=== PATIENT | male | born 1985 | race Caucasian/White ===

== ENCOUNTER → 2020-05-16 14:20 | Outpatient (CLI) | payer OTHER, SELFPAY ==
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
--- NOTE | ~2020-05-16 | XR_ITS ---
EXAMINATION: XR shoulder LT min 2V DATE: 05/16/2020 14:54 INDICATION: Left shoulder pain TECHNIQUE: AP internally and externally rotated, AP oblique externally rotated and axillary views of the left shoulder were obtained. COMPARISON: None FINDINGS: Normal alignment. No fracture. Glenohumeral joint is normal. Acromioclavicular joint is normal. Soft tissues are unremarkable. IMPRESSION: Negative left shoulder radiographs. Reviewed, dictated and finalized at location A.
== END ==
PROVIDERS: PCP Nurse Practitioner Family; Visit Provider Nurse Practitioner Family
DX: R07.81 Pleurodynia (principal); M25.512 Pain in left shoulder; S22.31XA Fracture of one rib, right side, initial encounter for closed fracture
CPT/HCPCS: 71111; 73030

== ENCOUNTER → 2020-07-26 13:08 | Outpatient (CLI) | payer OTHER, SELFPAY ==
--- NOTE | ~2020-07-26 | US_ITS ---
US right upper quadrant DATE: 07/26/2020 13:45 INDICATION: Right upper quadrant abdominal pain TECHNIQUE: Real-time imaging of the liver, pancreas, gallbladder COMPARISON: None FINDINGS: There is an approximately 4 mm gallbladder polyp. No gallbladder wall thickening or pericho lecystic abnormal fluid collection. Negative sonographic Benton's sign. No hepatic or pancreatic space-occupying mass lesion. Normal hepatopedal portal venous flow direction . IMPRESSION: 4 mm gallbladder polyp Reviewed, dictated and finalized at Location A. Reviewed, dictated and finalized at location A. IMPRESSION: 4 mm gallbladder polyp
== END ==
PROVIDERS: PCP Nurse Practitioner Family; Visit Provider Nurse Practitioner Family
DX: R10.11 Right upper quadrant pain (principal); K82.4 Cholesterolosis of gallbladder
CPT/HCPCS: 76705

== ENCOUNTER 2020-10-02 00:30 | Outpatient (CLI) | payer OTHER, SELFPAY ==
[2020-10-02 18:50] LABS: SARS-CoV-2 RNA PCR Negative
== END 2020-10-02 00:31 | disposition home or self-care (01) ==
LOC: ANHCOVIDDT 00:30
PROVIDERS: PCP Nurse Practitioner Family; Visit Provider Surgery
DX: Z01.812 Encounter for preprocedural laboratory examination (principal); Z20.822 Contact with and (suspected) exposure to COVID-19
CPT/HCPCS: C9803; U0003

== ENCOUNTER 2020-10-02 07:54 | Outpatient (CLI) | payer OTHER, SELFPAY ==
--- NOTE | 2020-10-02 07:57 | ECG_ITS ---
Measurements Intervals [place] Rate: 73 P: 37 GA: 125 QRS: 59 QRSD: 98 T: 5 QT: 349 QTc: 385 Interpretive Statements SINUS RHYTHM WITH MARKED SINUS ARRHYTHMIA NONSPECIFIC T-WAVE ABNORMALITY- INFERIOR LEADS BASELINE ARTIFACT- I, II, III, AVR, AVL BORDERLINE ECG Electronically Signed On 10-02-2020 8:16:48 CUSTOMER FIELD REPRESENTATIVE by Florian Flores D.O.
[2020-10-02 09:01] LABS: Alanine Aminotransferase 51 U/L (4-50); Albumin Level 4.2 g/dL (3.5-5.1); Alkaline Phosphatase 52 U/L (38-126); Amylase 79 U/L (30-110); Aspartate Amino Transferase 83 U/L (17-59); Bilirubin,Total 0.4 mg/dL (0.2-1.3); Lipase 75 U/L (23-300)
== END 2020-10-02 07:55 | disposition home or self-care (01) ==
LOC: ANHSURGERY 07:57
PROVIDERS: PCP Nurse Practitioner Family; Visit Provider Surgery
DX: Z01.812 Encounter for preprocedural laboratory examination (principal); K82.4 Cholesterolosis of gallbladder
CPT/HCPCS: 36415; 80076; 82150; 83690; 86850; 86900; 86901; 93005

== ENCOUNTER 2020-10-05 00:29 | Day surgery (SDC) | payer OTHER, SELFPAY ==
[2020-09-26 14:22] VITALS: BMI 27.1
--- NOTE | 2020-10-04 13:13 | WPDANESEPPF ---
Anes - Initial Pre Proc Eval Procedure: Operation Date: 10/05/20 10:30 Proposed Procedures p Laparoscopic Cholecystectomy, Possible Open - Gin Loya MD Date/Time: 10/04/20 13:13 Surgeon: Gin oLya MD Pre Op Diagnosis: Gallbladder Polyps Patient Data Age: 35 Gender: M Height: 1.85 m Weight: 93.18 kg Allergies Allergy/AdvReac Type Severity Reaction Status Date / Time No Known Allergies Allergy Verified 09/26/20 14:14 Home Medications Medication Instructions Recorded Confirmed Type ascorbic acid (vitamin C) [Vitamin 25 mg PO DAILY 09/26/20 09/26/20 History C] cholecalciferol (vitamin D3) 25 mcg PO DAILY 09/26/20 09/26/20 History [Vitamin D3] jlbtjpuvnozg-exq-puam-FA-vit K 1 tablet PO DAILY 09/26/20 09/26/20 History [Adults Multivitamin] Patient hx anesthesia problems: none Family hx anesthesia problems: none PMFSH Past Medical History Medical History (Updated 08/15/20 @ 14:38 by Lolita Wolf) High cholesterol Surgical History Surgical History (Updated 10/04/20 @ 13:13 by Tim Lacy DO) History of tonsillectomy Family History Family History Sibling Patient's sister is in good health Patient's brother is in good health Mother Family history of malignant neoplasm of breast in first degree relative Family history of malignant neoplasm Father Heart disease Cerebrovascular accident Grandparent Carcinoma of colon Social History Social History Smoking packs per day: 1 Smoking cigarettes per day: 20.0 Years smoked: 20 Smoking pack-years: 20.00 Smoking status: Current every day smoker Tobacco type: cigarettes Smoking end date: 09/09/20 Additional smoking assessment comments: smoked for 20 years,1ppd.currently using nicotine patch Alcohol intake: current Drinks per week: 50 Alcohol use details: 10-12 beers a day, Living arrangements: alone 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 Questions were solicited and answers provided to the satisfaction of the patient/family/POA.
[2020-10-05] VITALS (7 sets, daily range): BP systolic 116–154; BP diastolic 66–93; PULSE 63–96; RESP 14–20; TEMP 36.4–36.7; O2SAT 92–100
[2020-10-05] MEDS: ACETAMINOPHEN 500 MG TABLET 1000 MG PO (08:57)
[2020-10-05] MEDS: LACTATED RINGERS 1,000 ML 30 ML IV CONT ×2 (09:13→10:55)
[2020-10-05] MEDS: KETOROLAC 15 MG/ML VIAL (*BKC) IV PUSH (09:14)
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
--- NOTE | 2020-10-05 09:45 | WPDHPUPDATE1 ---
History and Physical Update Update Date/Time: 10/05/20 09:45 History and Physical has been reviewed, including an updated exam of the patient. There are NO changes in the patient's condition. Risks, benefits, and alternatives have been discussed and questions answered. Patient agrees to proceed with procedure.
[2020-10-05] MEDS: ceFAZolin 2 GM/D5W 50 ML 2 GM/50 ML BAG IVPB (10:00)
[2020-10-05] MEDS: LIDO 1%/EPINEPHRINE 1:100,000 50 ML VIAL INFILTRATE (10:21)
--- NOTE | 2020-10-05 10:46 | PM.PROC ---
Procedure Note - Detailed Date of procedure: 10/05/20 Pre-op diagnosis: Gallbladder Polyps chronic cholecystitis, GB polyps Post-op diagnosis: same Procedure performed: laparoscopic cholecystectomy Description of procedure: The patient was taken to the operating room placed in the supine position. After adequate induction of general anesthesia, the patient was prepped and draped in normal sterile fashion. A time-out was then performed to verify the patient's identity as well as the procedure being performed. I then made a 5 mm incision in the infraumbilical region. Through this, a Veress needle was placed into the peritoneal cavity and CO2 gas was then insufflated. After adequate pneumoperitoneum was achieved, the Veress needle was removed and a 5 mm trocar was placed through this incision. I then placed the laparoscope through this trocar site and under direct visualization placed a further 12 mm subxiphoid port as well as 2 additional 5 mm ports in the right upper abdomen. The gallbladder was then identified and was noted to be slightly inflamed. I was able to place a grasper at the dome of the gallbladder and this was retracted anterior and cephalad up over the liver. A 2nd retractor was then placed at the infundibulum and retracted laterally, this allowed visualization of the triangle of Calot. I then was able to visualize the cystic duct in its entirety from its proximal insertion into the gallbladder, to its distal junction with the common hepatic/common bile duct junction. At this point, I carefully skeletonized the proximal cystic duct with the [place] dissector. I then clipped and transected the proximal cystic duct. Next I visualized the cystic artery. Again the artery was skeletonized, clipped, and transected. I then used the Bovie cautery to take down the peritoneal attachments of the gallbladder off the liver bed. Once the gallbladder specimen was completely detached, an endo-pouch was placed through the 12 mm port site. I then placed the gallbladder specimen into the Endo pouch and removed the endo-pouch from the 12 mm port site. The specimen will now be sent to pathology for further review. I then copiously irrigated the right upper quadrant. Hemostasis was noted in the liver bed, the clips were noted to be in good position on both the cystic duct stump and the cystic artery stump. No other pathology was noted in the right upper quadrant. I then moved the laparoscope to the subxiphoid port. No iatrogenic injury or other pathology was noted in the lower abdomen. At this point, the abdomen was desufflated and all ports removed. The fascia of the 12 mm subxiphoid port was closed with a 0 Vicryl figure of 8 suture. All port sites were then closed with 4.O Monocryl subcuticular sutures. Dermabond was placed on each incision. The patient tolerated the procedure well, was extubated in the operating room postoperative and will be transferred to the recovery room in stable condition. Implants: none Anesthesia: GETA Surgeon: Gin Loya MD Estimated blood loss (mL): 5 Drains: No Packing: No Pathology: yes Complications: No immediate complications Condition: stable Disposition: PACU Findings: chronic cholecystitis
== END 2020-10-05 12:45 | disposition home or self-care (01) ==
PROVIDERS: PCP Nurse Practitioner Family; Visit Provider Surgery
PROC: 0FT44ZZ Resection of Gallbladder, Percutaneous Endoscopic Approach (ICD-10-PCS; CPT 47562; principal; 2020-10-05 10:30)
DX: K81.1 Chronic cholecystitis (principal); F17.210 Nicotine dependence, cigarettes, uncomplicated
CPT/HCPCS: 47562; 36415; 80076; 82150; 83690; 86850; 86900; 86901; 88304; 93005; A9270; C9803; J0690; J1100; J1170; J1885; J2001; J2250; J2405; J2710; J3010; J7030; J7120; U0003

== ENCOUNTER 2020-10-09 08:20 | Emergency (ER) | payer OTHER, SELFPAY ==
--- NOTE | ~2020-10-09 | CT_ITS ---
EXAMINATION: CT abdomen pelvis w con EXAM DATE: 10/09/2020 09:34 INDICATION: Right-sided abdominal pain. Laparoscopic cholecystectomy on 10/05/2020 TECHNIQUE: Spiral CT of the abdomen and pelvis was performed following intravenous injection of 100 m L Omnipaque 350. Axial, coronal and sagittal images were reviewed. The dose-length product (DLP) fo r this examination was 566.43 mGy-cm. The exposure was tailored according to patient size (auto mA e xposure control), and iterative reconstruction (ASIR) was used as additional dose reduction technique . There is no prior study for comparison. FINDINGS: The liver, spleen, adrenal glands and pancreas are unremarkable. Portal and splenic veins are patent. Kidneys enhance symmetrically. There is no hydronephrosis. There are cholecystectomy clips and mild inflammation of the gallbladder fossa, expected appearance for recent cholecystectomy. No fluid collection or evidence of bile leak. Prostate is unremarkable. The bladder is unremarkable. There is no retroperitoneal or pelvic lymphadenopathy. The appendix is normal. The stomach and small bowel are unremarkable. There is expected amount of c olonic stool. There is mild sigmoid colonic diverticulosis. There is no adjacent inflammatory change to suggest diverticulitis. No free intraperitoneal gas. The heart is normal in size. There are no pericardial or pleural effusions. Bibasilar subsegmental atelectasis. There are no osteoblastic or osteolytic lesions identified. Left L5 spondylolysis. Small umbilical fat-containing hernia. IMPRESSION: 1. Changes consistent with recent cholecystectomy. 2. Mild colonic diverticulosis. Reviewed, dictated and finalized at location B. 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
--- NOTE | ~2020-10-09 | NM_ITS ---
EXAMINATION: NM hepatobiliary wo pharm DATE: 10/09/2020 13:12 INDICATION: Right upper quadrant abdominal pain after cholecystectomy. COMPARISON: CT abdomen and pelvis 10/09/2020 TECHNIQUE: 5.1 mCi Tc-99m mebrofenin (Choletec) was administered intravenously. Scintigraphic images of the abdomen were obtained for one hour. FINDINGS: There is normal clearance of radiotracer from the blood pool. There is homogeneous tracer u ptake by the liver. Activity progresses to the bowel. There is no bile leak. IMPRESSION: 1. Normal hepatobiliary scintigraphy status post cholecystectomy. Reviewed, dictated and finalized at location A. 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
[2020-10-09 08:26] VITALS: BP 133/85; PULSE 77; RESP 20; TEMP 36.7; O2SAT 98
[2020-10-09 08:38] LABS: Basophils Absolute Auto 0.1 K/mm3 (0.0-0.1); Basophils Percent Auto 0.9 % (0.2-1.2); Eosinophils Absolute Auto 0.4 K/mm3 (0-0.3); Eosinophils Percent Auto 3.6 % (0-4.4); Hematocrit 48.1 % (42.0-52.0); Hemoglobin 16.6 g/dL (14.0-18.0); Immature Granulocyte Absolute 0.04 K/mm3 (0.00-0.031); Immature Granulocyte Percent A 0.4 % (0-0.5); Lymphocytes Absolute Auto 1.96 K/mm3 (0.9-3.2); Lymphocytes Percent Auto 19.9 % (18.3-44.2); Mean Corpuscular HGB Conc 34.5 g/dl (32-36); Mean Corpuscular Volume 86.8 fl (80-100); Mean Platelet Volume 9.6 fl (7.4-10.4); Monocytes Absolute Auto 0.6 K/mm3 (0.1-0.6); Monocytes Percent Auto 6.3 % (2.6-8.5); Neutrophils Absolute Auto 6.8 K/mm3 (1.3-6.7); Neutrophils Percent Auto 68.9 % (45.5-73.1); Platelet Count Result 276 k/mm3 (150-375); Red Blood Count 5.54 M/mm3 (4.6-6.20); Red Cell Distribution Width 11.6 % (11.5-14.5); White Blood Count 9.9 K/mm3 (4.5-10.0)
[2020-10-09 08:43] LABS: Add Urine Microscopic? NO; Appearance Urine Clear (Clear); Bacteria Urine Trace /hpf; Bilirubin Urine Negative (Negative); Blood Urine Negative (Negative); Color Urine Yellow (Yellow); Glucose Urine UA Negative (Negative); Ketones Urine Negative (Negative); Leukocyte Esterase Ur Negative LEU/UL (Negative); Mucus Urine Rare /lpf; Nitrate Urine Negative (Negative); Protein Urine Negative (Negative); RBC Urine 0-2 /hpf (0-2); Specific Grav Ur 1.015 (1.001-1.035); Urobilinogen Urine Negative mg/dL (<2.0); WBC Urine 0-3 /hpf
--- NOTE | 2020-10-09 08:52 | ED.ABDPAIN ---
HPI - Abdominal Pain General Chief Complaint: Abdominal Pain Stated Complaint: abdominal pain, post op Time Seen by Provider: 10/09/20 08:34 Source: patient History of Present Illness HPI narrative: Patient is a 35 y/o male complaining of right upper abdominal pain starting 2 day ago. He describes his pain as cramping and rates it as 5/10. He states that his pain feels like a runner's cramp. There is no pain radiation, no vomiting or diarrhea. He states that Ibuprofen helps with the pain somewhat. Of note, he had lap josé 4 days ago. Related Data Home Medications Medication Instructions Recorded Confirmed Adults Multivitamin 1 tablet PO DAILY 09/26/20 09/26/20 ascorbic acid (vitamin C) 25 mg PO DAILY 09/26/20 09/26/20 cholecalciferol (vitamin D3) 25 mcg PO DAILY 09/26/20 09/26/20 [Vitamin D3] Allergies Allergy/AdvReac Type Severity Reaction Status Date / Time No Known Allergies Allergy Verified 10/09/20 08:34 Review of Systems Constitutional: Constitutional: Denies chills, Denies fever(s), Denies headache(s) and Denies weakness Eyes: Eyes: Denies blurry vision ENT: Denies headache(s) and Denies neck pain Cardiovascular: Cardiovascular: Denies chest pain and Denies dyspnea Respiratory: Respiratory: Denies cough and Denies dyspnea Gastrointestinal: Gastrointestinal: Reports abdominal pain, Denies diarrhea, Denies nausea and Denies vomiting Genitourinary: Genitourinary: Denies hematuria and Denies dysuria Musculoskeletal: Musculoskeletal: Denies back pain and Denies neck pain Neurologic: Denies headache(s) and Denies weakness [facility] Past Medical History Medical History High cholesterol Surgical History Surgical History History of tonsillectomy Family History Family History Sibling Patient's sister is in good health Patient's brother is in good health Mother Family history of malignant neoplasm of breast in first degree relative Family history of malignant neoplasm Father Heart disease Cerebrovascular accident Grandparent Carcinoma of colon Social History Social History Smoking packs per day: 1 Smoking cigarettes per day: 20.0 Years smoked: 20 Smoking pack-years: 20.00 Smoking status: Current every day smoker Tobacco type: cigarettes Smoking end date: 09/09/20 Additional smoking assessment comments: smoked for 20 years,1ppd.currently using nicotine patch Alcohol intake: current Drinks per week: 50 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 Spiritual care concerns: No Exam Const: General: no acute distress and well developed Orientation/consciousness: oriented to person, oriented to place, oriented to time and patient oriented x3 HENMT: Head: normocephalic Ears: external ears normal General nose exam: Normal external nose present Eyes: General: appearance normal, both eyes and all related structures Conjunctivae: conjunctivae normal Neck: Neck: normal visual inspection and full ROM Chest: Chest palpation & inspection: normal inspection of the chest and no tenderness Resp: Effort & Inspection: normal respiratory effort Auscultation: clear to auscultation bilaterally Cardio: Rate: regular rate Rhythm: regular rhythm GI: GI Palp: No abdominal tenderness and Yes Soft to palpation Skin: General skin exam: normal color and turgor normal Neuro: General: oriented to person, oriented to place, oriented to time and patient oriented x3 Cognition (Neuro): normal cognition Extrem: General: normal to inspection, full ROM and no pedal edema Psych: Appearance: grossly normal Mental Status: mental status grossly normal Affect: normal affect Course Consultations Consultation #1: Discussed with Dr. Loya, who recommends discharge. Date:
[2020-10-09 09:13] LABS: Alanine Aminotransferase 83 U/L (4-50); Albumin Level 4.4 g/dL (3.5-5.1); Alkaline Phosphatase 74 U/L (38-126); Anion Gap 6 mmol/L (8-16); Aspartate Amino Transferase 37 U/L (17-59); Bilirubin,Total 0.6 mg/dL (0.2-1.3); Blood Urea Nitrogen 19 mg/dL (9-20); Calcium 9.4 mg/dL (8.4-10.2); Carbon Dioxide 30 mmol/L (22-30); Chloride 102 mmol/L (98-107); Estimated CRCL calculation 101 ml/min; Estimated Glomerular Filt Rate > 60; Glucose 105 mg/dL (75-110); Lipase 54 U/L (23-300); Potassium 4.2 mmol/L (3.4-5.0); Sodium 138 mmol/L (137-145)
== END 2020-10-09 14:27 | disposition home or self-care (01) ==
PROVIDERS: Emergency Provider Emergency Medicine; PCP Nurse Practitioner Family
DX: R10.11 Right upper quadrant pain (principal); G89.18 Other acute postprocedural pain; E78.00 Pure hypercholesterolemia, unspecified; F17.210 Nicotine dependence, cigarettes, uncomplicated; K57.90 Diverticulosis of intestine, part unspecified, without perforation or abscess without bleeding
CPT/HCPCS: 36415; 74177; 78226; 80053; 81003; 83690; 85025; 99284; A9537; Q9967

== ENCOUNTER 2022-07-19 15:40 | Emergency (ER) | payer OTHER, SELFPAY ==
--- NOTE | ~2022-07-19 | CT_ITS ---
EXAMINATION: CT diagnostic chest wo con DATE: 07/19/2022 16:23 INDICATION: Shortness of breath TECHNIQUE: Computed tomography (CT) of the chest was performed without intravenous contrast. The dose -length product (DLP) was 324.79 mGy-cm. Automated exposure control and iterative reconstruction tech nique were employed. COMPARISON: None FINDINGS: There is mild dependent atelectasis. No focal airspace opacities are identified. Calcified pulmonary nodules and calcified right hilar and subcarinal lymph nodes are consistent with old granul omatous disease. No pathologically enlarged thoracic lymph nodes are identified. The heart size is no rmal. No pleural effusion or pneumothorax. The gallbladder is surgically absent. IMPRESSION: 1. No CT correlate for the patient's symptoms. Reviewed, dictated and finalized at location B.
[2022-07-19 15:41] VITALS: PULSE 94
[2022-07-19 15:43] VITALS: BP 147/101; PULSE 104; RESP 16; TEMP 36.4; O2SAT 97
--- NOTE | 2022-07-19 15:59 | ECG_ITS ---
Measurements Intervals [place] Rate: 86 P: 35 CT: 135 QRS: 52 QRSD: 93 T: 31 QT: 325 QTc: 389 Interpretive Statements SINUS RHYTHM WITH MARKED SINUS ARRHYTHMIA NONSPECIFIC T-WAVE ABNORMALITY COMPARED TO ECG 10/02/2020 08:31:06 T-WAVE ABNORMALITY NOW PRESENT Electronically Signed On 07-20-2022 9:04:55 CDT by Dafne Adler M.D.
[2022-07-19] MEDS: ASPIRIN 325 MG ENTERIC TABLET PO (16:00)
[2022-07-19 16:05] LABS: Basophils Absolute Auto 0.09 K/mm3 (0.00-0.10); Basophils Percent Auto 1.2 % (0.0-1.0); Eosinophils Absolute Auto 0.16 K/mm3 (0.02-0.50); Eosinophils Percent Auto 2.2 % (1.0-6.0); Hemoglobin 15.1 g/dL (14.0-18.0); Immature Granulocyte Absolute 0.02 K/mm3 (0.00-0.00); Immature Granulocyte Percent A 0.3 % (0.0-0.0); Lymphocytes Absolute Auto 2.63 K/mm3 (1.10-4.50); Lymphocytes Percent Auto 36.1 % (18.0-42.0); Mean Corpuscular Hemoglobin 30.8 pg (27.0-31.0); Mean Corpuscular Volume 85.7 fL (78.0-102.0); Mean Platelet Volume 9.7 fl (8.7-11.0); Monocytes Absolute Auto 0.59 K/mm3 (0.10-0.90); Monocytes Percent Auto 8.1 % (2.0-11.0); Neutrophils Absolute Auto 3.8 K/mm3 (1.7-7.2); Neutrophils Percent Auto 52.1 % (50.0-70.0); Platelet Count Result 240 K/mm3 (150-420); Red Cell Distribution Width 11.1 % (11.6-14.4); White Blood Count 7.3 K/mm3 (4.8-10.8)
[2022-07-19 16:15] VITALS: BP 150/96; PULSE 94; RESP 20; O2SAT 97
[2022-07-19 16:21] LABS: Amphetamine Screen Urine Negative (Negative); Barbiturate Screen Urine Negative (Negative); Benzodiazepines Screen Urine Negative (Negative); Cannabinoid Screen Urine Negative (Negative); Cocaine Screen Urine Negative (Negative); Methadone Screen Urine Negative (Negative); Opiate Screen Urine Negative (Negative); Phencyclidine Screen Urine Negative (Negative)
[2022-07-19 16:26] LABS: Lactic Acid Reflex 0.6 mmol/L (0.4-2.0)
[2022-07-19 16:27] LABS: Alanine Aminotransferase 45 U/L (16-63); Albumin Level 4.1 g/dL (3.4-5.0); Alkaline Phosphatase 60 U/L (46-116); Anion Gap 11 mmol/L (8-16); Aspartate Amino Transferase 17 U/L (15-37); Bilirubin,Total 0.4 mg/dL (0.00-1.00); Blood Urea Nitrogen 21 mg/dL (7-18); Calcium 8.9 mg/dL (8.5-10.1); Carbon Dioxide 26 mmol/L (21-32); Chloride 106 mmol/L (98-108); Estimated CRCL calculation 84 ml/min; Estimated Glomerular Filt Rate > 60; Glucose 126 mg/dL (70-99); Osmolality Calculated 301 mOsm/kg (285-295); Potassium 3.6 mmol/L (3.5-5.1); Sodium 143 mmol/L (136-145); Troponin I 4.5 ng/L (0.00-60.4)
[2022-07-19 16:30] LABS: Ethanol < 3 mg/dL (0-6)
[2022-07-19 16:55] VITALS: BP 129/86; PULSE 93; RESP 15; O2SAT 97
--- NOTE | 2022-07-19 16:57 | PC.NURSE ---
pt resting per cot with cell phone. denies any chest pain, shortness of breath. i feel fine .
[2022-07-19 17:15] VITALS: BP 134/88; PULSE 91; RESP 20; TEMP 37.1; O2SAT 97
--- NOTE | 2022-07-19 17:23 | ED.SOB ---
HPI - SOB/Dyspnea General Chief Complaint: Shortness of Breath/Dyspnea Stated Complaint: chest pain Time Seen by Provider: 07/19/22 15:43 Source: patient and RN notes reviewed Mode of arrival: ambulatory Limitations: no limitations History of Present Illness MD elicited complaint: shortness of breath and chest pain Onset (ago): day(s) (3) Timing: constant Severity: mild Exacerbating factors: nothing Relieving factors: nothing Associated symptoms: chest pain and other (SOB) Treatment prior to arrival: none Related Data Home Medications Medication Instructions Recorded Confirmed No Home Medications 07/19/22 07/19/22 Allergies Allergy/AdvReac Type Severity Reaction Status Date / Time No Known Allergies Allergy Verified 10/25/20 09:53 Review of Systems Review of Systems: All systems reviewed & are unremarkable except as noted in HPI and below Constitutional: Constitutional: Reports no additional constitutional complaints Eyes: Eyes: Reports no additional eye complaints ENT: Reports system reviewed and no additional complaints, except as documented Cardiovascular: Cardiovascular: Reports no additional cardiovascular complaints and Reports chest pain Respiratory: Respiratory: Reports no additional respiratory complaints and Reports dyspnea Gastrointestinal: Gastrointestinal: Reports no additional gastrointestinal complaints Musculoskeletal: Musculoskeletal: Reports no additional musculoskeletal complaints Integumentary/Breasts: Skin/Breast: Reports system reviewed and no additional complaints, except as docu Neurologic: Reports system reviewed and no additional complaints, except as documented Psychiatric: Psychiatric: Reports no additional psychiatric complaints Endocrine: Endocrine: Reports no additional endocrine complaints Hematologic/Lymphatic: Hematologic/Lymphatic: Reports no additional hematologic/lymphatic complaints Allergic/Immunologic: Allergic/Immunologic: Reports no additional allergic/immunologic complaints [facility] Past Medical History Medical History Chest wall pain High cholesterol Surgical History Surgical History History of tonsillectomy Hx laparoscopic cholecystectomy 10/05/20 Family History Family History Sibling Patient's sister is in good health Patient's brother is in good health Mother Family history of malignant neoplasm of breast in first degree relative Family history of malignant neoplasm Father Heart disease Cerebrovascular accident Grandparent Carcinoma of colon Social History Social History Smoking packs per day: 1 Smoking cigarettes per day: 20.0 Years smoked: 20 Smoking pack-years: 20.00 Smoking status: Current every day smoker Tobacco type: cigarettes Smoking end date: 09/09/20 Additional smoking assessment comments: smoked for 20 years,1ppd.currently using nicotine patch Alcohol intake: current Drinks per week: 50 Alcohol use details: 10-12 beers a day, 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 Spiritual care concerns: No Exam Const: General: healthy appearing, no acute distress and well nourished Nutritional Appearance: well nourished Orientation/consciousness: patient oriented x3 Limitations: no limitations HENMT: Head: normal to inspection Ears: external ears normal, TM's normal bilaterally and EAC's normal Face/Nose/Sinus: Normal external nose present, Normal nares present, normal facial exam and sinuses nontender Face and sinus: normal facial exam and sinuses nontender Mouth: Yes Normal oral and palatal mucosa present and Yes moist mucous membranes Teeth and gingiva: dentition normal Throat: posterior oropharynx normal Eyes: Conjunctivae: conjunctivae normal Pupils: Equal, roun
== END 2022-07-19 17:31 | disposition home or self-care (01) ==
PROVIDERS: Emergency Provider Emergency Medicine; PCP Nurse Practitioner Family
DX: R07.89 Other chest pain (principal)
CPT/HCPCS: 36415; 71250; 80053; 80307; 83605; 84484; 85025; 93005; 99284; A9270